=== PATIENT | male | born 1950 | race African-American/Black ===

== ENCOUNTER 2017-09-04 13:57 | Emergency (ER) | payer SELFPAY ==
[2017-09-04 14:27] LABS: #Lymphocytes 1.3 thou/uL (1.20-3.40); #Monocytes 0.4 thou/uL (0.11-0.59); #Neutrophils 2.6 thou/uL (1.40-6.50); %Basophils 0.2 % (0.0-1.0); %Eosinophils 0.5 % (0.0-10.0); %Lymphocytes 29.8 % (21.0-51.0); %Monocytes 9.3 % (0.0-10.0); %Neutrophils 60.3 % (42.0-75.0); Hemoglobin 13.9 g/dL (14.0-18.0); Mean Corpuscular HGB CONC 33.6 g/dL (32.0-36.0); Mean Corpuscular Hemoglobin 30.6 pg (27.0-31.0); Platelet Count 303 thou/uL (130-400); RBC Distribution Width 12.3 % (11.5-14.5); Red Blood Cell (RBC) Count 4.54 mill/uL (4.70-6.10); White Blood Cell (WBC) Count 4.4 thou/uL (4.8-10.8)
[2017-09-04 14:47] LABS: ALT (SGPT) 30 U/L (8-55); AST (SGOT) 34 U/L (5-34); Albumin 4.6 g/dL (3.4-4.8); Alkaline Phosphatase 53 U/L (40-150); Anion Gap 13 mmol/L (10-20); BUN (Urea Nitrogen) 20 mg/dL (8.4-25.7); Bilirubin, Total 0.6 mg/dL (0.2-1.2); Calc. Creatinine Clearance 0 mL/min (70-130); Carbon Dioxide 27 mmol/L (23-31); Chloride 101 mmol/L (98-107); Estimated GFR-MDRD 74; Globulin 3.5 g/dL (2.4-3.5); Glucose 124 mg/dL (80-115); Potassium 4.3 mmol/L (3.5-5.1); Protein, Total 8.1 g/dL (5.8-8.1); Sodium 137 mmol/L (136-145)
[2017-09-04 14:48] LABS: Acetaminophen Less than 6.0 mcg/mL (10.0-30.0); Alcohol Less than 10 mg/dL (Less than 10); Salicylate Less than 8.0 mg/dL (15.0-30.0)
[2017-09-04 14:49] LABS: Bilirubin Negative (Negative); Blood, Urine Negative (Negative); Clarity CLEAR (Clear); Glucose, Urine (Dipstick) Negative (Negative); Leukocyte Negative (Negative); Nitrite Negative (Negative); Protein, Urine (Dipstick) Negative (Neg-Trace); Specific Gravity, Urine 1.011 (1.002-1.036)
--- NOTE | 2017-09-04 14:57 | CT ---
HEAD CT WITHOUT CONTRAST: HISTORY: Altered mental status. COMPARISON: None. TECHNIQUE: Noncontrast head CT is performed from the skull base to the skull vertex. FINDINGS: No parenchymal hemorrhage. No extraaxial hematoma. No midline shift. Basilar cisterns are patent. Age-appropriate atrophy. Cortical doll-white matter differentiation is preserved. Ventricles and sulci are patent and symmetric. Minimal chronic small-vessel ischemic change of the white matter. Calvarium is intact. Adequate aer ation of the sinuses and mastoid air cells. IMPRESSION: No acute intracranial process. POS: YOUNG
[2017-09-04 14:59] LABS: Amphetamine Not Detected (NotDetected); Barbiturates Screen Not Detected (NotDetected); Benzodiazepine Screen Not Detected (NotDetected); Cocaine Metabolite Screen Not Detected (NotDetected); Medtox Reader # READER 4; Methadone Not Detected (NotDetected); Methamphetamine Not Detected (NotDetected); Opiate Screen Not Detected (NotDetected); Oxycodone Screen Not Detected (NotDetected); Phencyclidine (PCP) Not Detected (NotDetected); THC/Cannabinoid Screen Not Detected (NotDetected); Tricyclic Screen Not Detected (NotDetected)
[2017-09-04 15:00] LABS: Medtox Control Line Valid? VALID (VALID)
== END 2017-09-04 17:31 ==
LOC: ERS 13:57
DX: R44.0 Auditory hallucinations (principal)
CPT/HCPCS: 36415; 70450; 80053; 80306; 80307; 81003; 84443; 85025; 93005